=== PATIENT | female | born 1960 | race Caucasian/White ===

== ENCOUNTER 2020-05-02 08:50 | Emergency (ER) | payer OTHER, SELFPAY ==
[~2020-05-02] VITALS: Ht 162.6 cm; Wt 77.1 kg
[2020-05-02 08:52] VITALS: Ht 162.6 cm; Wt 77.1 kg
[2020-05-02 11:03] VITALS: BP 124/70
== END 2020-05-02 11:03 | disposition home or self-care (01) ==
LOC: ED 08:50
DX: R50.9 Fever, unspecified (principal); M79.10 Myalgia, unspecified site; R19.7 Diarrhea, unspecified; R43.8 Other disturbances of smell and taste; R53.1 Weakness; R42 Dizziness and giddiness; R10.9 Unspecified abdominal pain; I10 Essential (primary) hypertension; Z20.828 Contact with and (suspected) exposure to other viral communicable diseases; Z98.890 Other specified postprocedural states; Z90.49 Acquired absence of other specified parts of digestive tract
CPT/HCPCS: Q0092; Q0162; U0003-CS

== ENCOUNTER → 2020-08-17 | Outpatient (CLI) | payer OTHER ==
[2020-08-17 13:23] LABS: BASOPHIL % 0.6 % (0-2); PLATELET COUNT 262 x10^3mcL (130-400); RED CELL DISTRIBUTION WIDTH 13.5 % (11.5-14.5)
[2020-08-17 13:34] LABS: IRON 65 ug/dL (50-170); TOTAL IRON BINDING CAPACITY 290 ug/dL (250-450)
[2020-08-17 13:49] LABS: ALKALINE PHOSPHATASE 60 U/L (46-116); ALT/SGPT 46 U/L (14-59); AST/SGOT 26 U/L (15-37); BILIRUBIN TOTAL 0.49 mg/dL (0.20-1.00); CALCIUM 9.2 mg/dL (8.5-10.1); CARBON DIOXIDE 29.1 mmol/L (21-32); CHLORIDE SERUM 102 mmol/L (98-107); CREATININE SERUM 0.8 mg/dL (0.6-1.0); GFR1 > 60 mL/min; GLUCOSE SERUM 89 mg/dL (74-106); HDL CHOLESTEROL 42 mg/dL (40-60); POTASSIUM SERUM 3.8 mmol/L (3.5-5.1); SODIUM SERUM 140 mmol/L (136-145); TOTAL PROTEIN, SERUM 7.8 g/dL (6.4-8.2); TRIGLYCERIDES 96 mg/dL (<150)
[2020-08-17 13:50] LABS: CHOLESTEROL 211 mg/dL (<200)
[2020-08-18 08:08] LABS: TESTOSTERONE, SERUM 15 ng/dL (3-41)
== END | disposition home or self-care (01) ==
LOC: LB 12:17
PROVIDERS: ATTEND Internal Medicine
DX: D64.9 Anemia, unspecified (principal); E78.2 Mixed hyperlipidemia; I10 Essential (primary) hypertension; Z79.890 Hormone replacement therapy
CPT/HCPCS: 82670; 84403